=== PATIENT | male | born 1995 | race Caucasian/White ===

== ENCOUNTER 2017-01-30 13:15 | Emergency (ER) | payer OTHER ==
[2017-01-30 13:21] VITALS: BP 119/69; PULSE 98; TEMP 97.9; BMI 25.8
--- NOTE | 2017-01-30 14:46 | PDOC ---
History of Present Illness - General History Source: Patient Exam Limitations: No Limitations - History of Present Illness Initial Comments: Chief complaint: Anxiety History of present illness: He reports that he has a history of anxiety, which he has gone to therapy but has not taken any therapy. He does not have a psychiatrist which he follows up with. He notes that he usually gets abdominal discomfort, headache and palpitations when he gets his anxiety episodes. He reports that he currently does not have any of these symptoms. He also reports that his last anxiety episode was last week. He states that he is seeking some sort of short term prescription help to help curb his anxiety. The patient is from [place] but currently goes to school in [place]. He currently does not have insurance to cover his primary care needs in [place], which is why he came to the ED. Allergies: None Past medical history: Anxiety Past surgical history: Right foot surgery Social history: Family history of diabetes <Joseph Ramírez - Last Filed: 01/30/17 14:47> <Addison Hatch - Last Filed: 01/30/17 15:04> - General Chief Complaint: Psychiatric Stated Complaint: ANXIETY Time Seen by Provider: 01/30/17 13:30 Past History <Joseph Ramírez - Last Filed: 01/30/17 14:47> - Social History Smoking Status: Unknown if ever smoked <Addison Hatch - Last Filed: 01/30/17 15:04> - Past Medical History Allergies/Adverse Reactions: Allergies No Known Allergies Allergy (Unverified 01/30/17 13:29) Home Medications: Ambulatory Orders NK [No Known Home Medication] 01/30/17 *Review of Systems - Review of Systems Able to Perform ROS?: Yes Comments:: 01/30/17 14:47 GENERAL/CONSTITUTIONAL: No fever or chills. No weakness. HEAD, EYES, EARS, NOSE AND THROAT: No change in vision. No ear pain or discharge. No sore throat. CARDIOVASCULAR: No chest pain or shortness of breath RESPIRATORY: No cough, wheezing, or hemoptysis. GASTROINTESTINAL: No nausea, vomiting, diarrhea or constipation. GENITOURINARY: No dysuria, frequency, or change in urination. MUSCULOSKELETAL: No joint or muscle swelling or pain. No neck or back pain. SKIN: No rash NEUROLOGIC: No headache, vertigo, loss of consciousness, or change in strength/ sensation. ENDOCRINE: No increased thirst. No abnormal weight change HEMATOLOGIC/LYMPHATIC: No anemia, easy bleeding, or history of blood clots. ALLERGIC/IMMUNOLOGIC: No hives or skin allergy. <Joseph Ramírez - Last Filed: 01/30/17 14:47> *Physical Exam - Vital Signs Last Vital Signs Temp Pulse Resp BP Pulse Ox 97.9 F 98 H 18 119/69 97 01/30/17 13:15 01/30/17 13:15 01/30/17 13:15 01/30/17 13:15 01/30/17 13:15 - Physical Exam Comments: 01/30/17 14:47 GENERAL: Awake, alert, and fully oriented, in no acute distress HEAD: No signs of trauma, normocephalic, atraumatic EYES: PERRLA, EOMI, sclera anicteric, conjunctiva clear ENT: Auricles normal inspection, hearing grossly normal, nares patent, oropharynx clear without exudates. Moist mucosa NECK: Normal ROM, supple, no lymphadenopathy, JVD, or masses LUNGS: No distress, speaks full sentences, clear to auscultation bilaterally HEART: Regular rate and rhythm, normal S1 and S2, no murmurs, rubs or gallops, peripheral pulses normal and equal bilaterally. ABDOMEN: Soft, nontender, normoactive bowel sounds. No guarding, no rebound. No masses EXTREMITIES: Normal inspection, Normal range of motion, no edema. No clubbing or cyanosis. NEUROLOGICAL: Cranial nerves II through XII grossly intact. Normal speech, normal gait, no focal sensorimotor deficits SKIN: Warm, Dry, normal turgor, no rashes or lesions noted. <Ju Ramírezroxanne Vazquez - Last Filed: 01/30/17 14:47> - Vital Signs Last Vital Signs Temp Pulse Resp BP Pulse Ox 97.9 F 98 H 18 119/69 97 01/30/17 13:15 01/30/17 13:15 01/30/17 13:15 01/30/17 13:15 01/30/17 13:15 <Addison Hatch - Last Filed: 01/30/17 15:04> Plan - Order(s) Order(s): Orders Medication Instructions Recorded NK [No Known Home Medication] 01/30/17 <Joseph Ramírez - Last Filed: 01/30/17 14:47> - Progress Note Progress Note: 01/30/17 15:00 The patient was counseled at length about his anxiety disorder. He has had a therapist in the past, who instructed him on relaxation techniques, which she has been using as needed. He denies any history of depression, suicidal or homicidal ideations, or drug/alcohol abuse. He would like a prescription for Xanax to use when he needs it. Physical exam including lung exam and neurological exam was normal. Patient's pupils were 4 mm. Gait was stable and unimpaired Resuming therapeutic relationship with a therapist was recommended. This was deemed necessary before considering benzodiazepine therapy. The patient was amenable to this recommendation. Referred to psychiatrist, community clinic, or back to his primary therapist for treatment. Patient fully ambulatory and in no distress upon discharge to follow-up as recommended 01/30/17 15:03 - Order(s) Order(s): Orders Medication Instructions Recorded NK [No Known Home Medication] 01/30/17 <Addison Hatch - Last Filed: 01/30/17 15:04> *DC/Admit/Observation/Transfer - Attestations Scribe Attestion: 01/30/17 14:48 Documentation prepared by Joseph Ramírez, acting as medical assistant internal medicine for Addison Owens MD <Joseph Ramírez - Last Filed: 01/30/17 14:47> - Discharge Dispostion Admit: No <Addison Hatch - Last Filed: 01/30/17 15:04> Diagnosis at time of Disposition: Anxiety - Discharge Dispostion Disposition: HOME Condition at time of disposition: Stable - Referrals Referrals: Nicola Cantu MD [Staff Physician] - - Patient Instructions Printed Discharge Instructions: DI for Anxiety -- Adult, Anxiety and Panic Attacks (Alternative Therapy), Yoga May Help Reduce Anxiety and Stress, Acupressure May Decrease Preoperative Anxiety in Children Additional Instructions: Continue relaxation techniques, consider regular moderate exercise regimen, resume relationship with therapist.
== END 2017-01-30 14:58 | disposition home or self-care (01) ==
LOC: FER 13:15
DX: F41.9 Anxiety disorder, unspecified (principal)
CPT/HCPCS: 99283-25

== ENCOUNTER 2017-11-11 22:17 | Emergency (ER) | payer OTHER ==
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
[2017-11-11 22:46] VITALS: BP 113/68; PULSE 70; TEMP 98.6; BMI 26.6
[2017-11-11] MEDS ORDERED: IBUPROFEN 600 MG TABLET (FP) PO ONE ×2 (22:48→23:13)
== END 2017-11-11 23:22 | disposition home or self-care (01) ==
LOC: FER 22:17
DX: S93.402A Sprain of unspecified ligament of left ankle, initial encounter (principal); S90.512A Abrasion, left ankle, initial encounter; V03.10XA Pedestrian on foot injured in collision with car, pick-up truck or van in traffic accident, initial encounter; Y93.89 Activity, other specified; Y92.410 Unspecified street and highway as the place of occurrence of the external cause; S80.211A Abrasion, right knee, initial encounter; S80.01XA Contusion of right knee, initial encounter
CPT/HCPCS: 73562-TC-RT; 73610-TC-LT; 99282-25